=== PATIENT | female | born 1975 | race Caucasian/White ===

== ENCOUNTER → 2023-08-26 14:27 | Outpatient (REF) | payer BC, SELFPAY | LOC: PAVMRI 14:27 | PROVIDERS: ATTENDING PHYSICIAN Orthopaedic Surgery; FAMILY PHYSICIAN Family Medicine | DX: M25.562 Pain in left knee (principal) | CPT/HCPCS: 73721 ==

== ENCOUNTER → 2023-09-23 13:22 | Outpatient (REF) | payer BC, SELFPAY ==
[2023-10-01 11:22] LABS: HPV, High Risk Not Detected; HPV, High Risk Source Cervical
== END ==
LOC: CPAP 13:22
PROVIDERS: ATTENDING PHYSICIAN Nurse Practitioner Family
DX: Z01.419 Encounter for gynecological examination (general) (routine) without abnormal findings (principal); Z12.4 Encounter for screening for malignant neoplasm of cervix; Z11.51 Encounter for screening for human papillomavirus (HPV)
CPT/HCPCS: 87624; G0123

== ENCOUNTER → 2023-12-08 18:03 | Outpatient (REF) | payer BC, SELFPAY | LOC: WDC 18:03 | PROVIDERS: ATTENDING PHYSICIAN Family Medicine | DX: Z12.31 Encounter for screening mammogram for malignant neoplasm of breast (principal) | CPT/HCPCS: 77063; 77067 ==

== ENCOUNTER → 2024-12-11 16:11 | Outpatient (REF) | payer BC, SELFPAY | LOC: WDC 16:11 | PROVIDERS: ATTENDING PHYSICIAN Family Medicine; REFERRING PHYSICIAN Nurse Practitioner Family | DX: Z12.31 Encounter for screening mammogram for malignant neoplasm of breast (principal) | CPT/HCPCS: 77063; 77067 ==